=== PATIENT | male | born 1975 | race Two or more races ===

== ENCOUNTER → 2024-04-14 | Outpatient (CLI) | payer BC ==
[~2024-04-14] MED LIST: IOHEXOL 350 MG/ML 100ML IJ ONE; METOPROLOL TARTRATE 1MG/1ML-5ML VIAL IV ONE; NITROGLYCERIN 0.4 MG SL TAB SL ONE
[2024-04-14 08:45] VITALS: BP 115/75; PULSE 71; RESP 16; O2SAT 97
[2024-04-14] MEDS: METOPROLOL TARTRATE 1MG/1ML-5ML VIAL IV ONE ×2 (09:30→09:36)
[2024-04-14] MEDS: NITROGLYCERIN 0.4 MG SL TAB SL ONE (09:35)
[2024-04-14 10:31] VITALS: BP 103/66; PULSE 59; RESP 16; O2SAT 100
== END | disposition home or self-care (01) ==
LOC: Rad HDHVI 08:19
PROVIDERS: ATTEND Internal Medicine Cardiovascular Disease
DX: I25.10 Atherosclerotic heart disease of native coronary artery without angina pectoris (principal)
CPT/HCPCS: 75571; 96374; G0463; Q9967; 96375